=== PATIENT | female | born 1990 | race African-American/Black ===

== ENCOUNTER 2016-11-27 14:42 | Emergency (ER) | payer MEDICAID ==
[~2016-11-27] VITALS: Ht 167.6 cm; Wt 57.0 kg
[2016-11-27] MEDS ORDERED: KETOROLAC 60MG/2ML VIAL IM ONE (18:30)
[2016-11-27 19:10] VITALS: BP 105/76
== END 2016-11-27 19:22 | disposition home or self-care (01) ==
LOC: ER 15:49
DX: L08.9 Local infection of the skin and subcutaneous tissue, unspecified (principal); M32.9 Systemic lupus erythematosus, unspecified; F17.210 Nicotine dependence, cigarettes, uncomplicated; F12.90 Cannabis use, unspecified, uncomplicated
CPT/HCPCS: 96372; 99283; J1885; X7700; Z7610

== ENCOUNTER 2016-11-30 16:57 | Emergency (ER) | payer SELFPAY ==
[~2016-11-30] VITALS: Ht 167.6 cm; Wt 57.0 kg
[2016-11-30] MEDS ORDERED: BACITRACIN ZINC OINT UDPKT TOP ONE (18:30)
[2016-11-30] MEDS ORDERED: KETOROLAC 60MG/2ML VIAL IM ONE (18:30)
[2016-11-30] MEDS ORDERED: TETANUS, DIPHTHERIA, PERTUSSIS VAC/PF 0.5ML (>7YR OLD) IM ONE (18:30)
[2016-11-30] MEDS ORDERED: LIDOCAINE HCL 1% 20ML VIAL (Pyxis) INJ MC ONE (18:30)
[2016-11-30] MEDS ORDERED: TRAMADOL 50MG TABLET PO ONE (20:00)
[2016-11-30 20:12] VITALS: BP 114/81
== END 2016-11-30 20:22 | disposition home or self-care (01) ==
LOC: ER 17:52
DX: L02.31 Cutaneous abscess of buttock (principal); F17.200 Nicotine dependence, unspecified, uncomplicated; M32.9 Systemic lupus erythematosus, unspecified; F12.10 Cannabis abuse, uncomplicated
CPT/HCPCS: 10060; 81025; 90471; 90715; 96372; 99284; J1885; J3490; Z7610

== ENCOUNTER 2017-11-12 00:26 | Emergency (ER) | payer MEDICAID ==
[~2017-11-12] VITALS: Ht 167.6 cm; Wt 58.0 kg
[2017-11-12] MEDS ORDERED: HYDROCODONE/ACETAMINOPHEN 10/325MG TABLET PO ONE (02:45)
[2017-11-12 05:41] VITALS: BP 137/82
== END 2017-11-12 06:06 | disposition home or self-care (01) ==
LOC: ER 00:26
DX: S93.402A Sprain of unspecified ligament of left ankle, initial encounter (principal); M32.9 Systemic lupus erythematosus, unspecified; F17.200 Nicotine dependence, unspecified, uncomplicated; F12.10 Cannabis abuse, uncomplicated; W10.8XXA Fall (on) (from) other stairs and steps, initial encounter; Y93.89 Activity, other specified; Y92.018 Other place in single-family (private) house as the place of occurrence of the external cause
CPT/HCPCS: 73610; 73630; 99284

== ENCOUNTER 2018-08-11 20:02 | Emergency (ER) | payer MEDICAID ==
[~2018-08-11] VITALS: Ht 167.6 cm; Wt 65.0 kg
[2018-08-11] MEDS ORDERED: LIDOCAINE HCL 1% 20ML VIAL (Pyxis) INJ INFIL ONE (23:45)
[2018-08-11] MEDS ORDERED: BACITRACIN ZINC OINT UDPKT TOP ONE (23:45)
[2018-08-11] MEDS ORDERED: IBUPROFEN 600MG TABLET PO ONE (23:45)
[2018-08-12 00:23] VITALS: BP 126/74
== END 2018-08-12 00:23 | disposition home or self-care (01) ==
LOC: ER 20:02
DX: L02.31 Cutaneous abscess of buttock (principal); F12.10 Cannabis abuse, uncomplicated
CPT/HCPCS: 10060; 81025; 87070; 87205; 99283; J3490; Z7610

== ENCOUNTER 2018-10-27 12:57 | Emergency (ER) | payer MEDICAID ==
[~2018-10-27] VITALS: Ht 167.6 cm; Wt 64.0 kg
[2018-10-27] MEDS ORDERED: BACITRACIN ZINC OINT UDPKT TOP ONE (15:00)
[2018-10-27] MEDS ORDERED: LIDOCAINE HCL/EPINEPHRINE 1%-EPI 1:100,000 30 ML VIAL INFIL ONE (15:00)
[2018-10-27] MEDS ORDERED: LIDOCAINE HCL/EPINEPHRINE 1%-EPI 1:100,000 20 ML VIAL INFIL NR (15:15)
[2018-10-27 15:43] VITALS: BP 121/74
== END 2018-10-27 15:43 | disposition home or self-care (01) ==
LOC: ER 12:57
DX: L05.01 Pilonidal cyst with abscess (principal)
CPT/HCPCS: 10060; 99283; Z7610

== ENCOUNTER 2019-04-25 21:37 | Emergency (ER) | payer SELFPAY ==
[~2019-04-25] VITALS: Ht 170.2 cm; Wt 59.0 kg
[2019-04-26] MEDS ORDERED: LIDOCAINE HCL/EPINEPHRINE 1%-EPI 1:100,000 30 ML VIAL INFIL ONE (00:45)
[2019-04-26] MEDS ORDERED: IBUPROFEN 600MG TABLET PO ONE (00:45)
[2019-04-26] MEDS ORDERED: LIDOCAINE HCL/EPINEPHRINE 1%-EPI 1:100,000 20 ML VIAL INFIL SCH (01:00)
[2019-04-26 03:37] VITALS: BP 115/82
== END 2019-04-26 03:39 | disposition home or self-care (01) ==
LOC: ER 21:37
DX: L02.31 Cutaneous abscess of buttock (principal); F17.290 Nicotine dependence, other tobacco product, uncomplicated
CPT/HCPCS: 10060; 87070; 87205; 99283; J3490; Z7610

== ENCOUNTER 2020-11-27 03:39 | Emergency (ER) | payer MEDICAID ==
[~2020-11-27] VITALS: Ht 167.6 cm; Wt 59.0 kg
[2020-11-27] MEDS ORDERED: SULF1TAB48 MT (04:04)
[2020-11-27] MEDS ORDERED: DIPH25CA83 MT (04:04)
[2020-11-27] MEDS ORDERED: ACET-2708 MT (04:06)
[2020-11-27 04:10] VITALS: BP 129/82
== END 2020-11-27 04:15 | disposition home or self-care (01) ==
LOC: ER 03:39
DX: L02.31 Cutaneous abscess of buttock (principal); Z76.0 Encounter for issue of repeat prescription
CPT/HCPCS: 99283

== ENCOUNTER 2021-05-04 01:23 | Emergency (ER) | payer MEDICAID ==
[~2021-05-04] VITALS: Ht 167.6 cm; Wt 62.0 kg
[~2021-05-04 01:23] MED LIST: ACET-2708 MT; DIPH25CA83 MT; SULF1TAB48 MT
[2021-05-04 01:34] VITALS: BP 110/86
[2021-05-04] MEDS ORDERED: ONDANSETRON 4MG ODT PO ONE (02:30)
[2021-05-04] MEDS ORDERED: ONDA4TAB5 PO (07:24)
== END 2021-05-04 03:55 | disposition left against medical advice (07) ==
LOC: ER 01:23
DX: R11.10 Vomiting, unspecified (principal); Z53.21 Procedure and treatment not carried out due to patient leaving prior to being seen by health care provider

== ENCOUNTER 2021-05-04 04:39 | Emergency (ER) | payer MEDICAID ==
[~2021-05-04] VITALS: Ht 167.6 cm; Wt 62.0 kg
[2021-05-04] MEDS ORDERED: MAGNESIUM/ALUMINUM HYDROXIDE/SIMETHICONE 30ML UDC PO STA (04:58)
[2021-05-04] MEDS ORDERED: ONDANSETRON HCL 4MG/2ML INJ IV STA (04:58)
[2021-05-04] MEDS ORDERED: SODIUM CHLORIDE 0.9% 1,000 ML IV ONE (05:00)
[2021-05-04] MEDS ORDERED: KETOROLAC 30MG/ML VIAL IV ONE (05:30)
[2021-05-04 05:54] LABS: CHLORIDE 106 mEq/L (98-107); HEMATOCRIT. 38.4 % (36.0-48.0); HEMOGLOBIN. 12.5 g/dL (12.0-16.0); MEAN CORPUSCULAR HEMOGLOBIN 30.1 pg (28.0-32.0); MEAN CORPUSCULAR VOLUME 92.7 fL (81.0-99.0); MEAN PLATELET VOLUME 7.6 fl (7.4-10.4); PLATELET 313 x1000/uL (130-400); RED BLOOD CELL COUNT 4.15 mill/uL (4.2-5.4); RED CELL DISTRIBUTION WIDTH 13.6 % (11.6-14.6)
[2021-05-04 06:03] VITALS: BP 113/76
[2021-05-04] MEDS ORDERED: ONDA4TAB5 PO (07:24)
[2021-05-04 08:06] LABS: PLATELET ESTIMATE NORMAL
== END 2021-05-04 08:38 | disposition home or self-care (01) ==
LOC: ER 04:39
DX: A05.9 Bacterial foodborne intoxication, unspecified (principal)
CPT/HCPCS: 36415; 80053; 83690; 85025; 96361; 96374; 96375; 99284; J1885; J2405; J7030

== ENCOUNTER 2022-03-14 22:51 | Emergency (ER) | payer MEDICAID ==
[~2022-03-14] VITALS: Ht 167.6 cm; Wt 62.0 kg
[~2022-03-14 22:51] MED LIST changes: +ONDA4TAB5 PO
[2022-03-14 23:01] VITALS: BP 118/89
[2022-03-15] MEDS ORDERED: CARB-173 EACH EAR (03:47)
[2022-03-15] MEDS ORDERED: OFLO5DRO4 RIGHT EAR (03:47)
== END 2022-03-15 05:14 | disposition home or self-care (01) ==
LOC: ER 22:51
DX: H60.91 Unspecified otitis externa, right ear (principal); H61.22 Impacted cerumen, left ear; D64.9 Anemia, unspecified
CPT/HCPCS: 99281; 99283

== ENCOUNTER 2023-03-28 21:29 | Emergency (ER) | payer SELFPAY ==
[~2023-03-28] VITALS: Ht 167.6 cm; Wt 59.2 kg
[~2023-03-28 21:29] MED LIST changes: +CARB-173 EACH EAR; +OFLO5DRO4 RIGHT EAR
[2023-03-28 22:26] VITALS: O2SAT 100
[2023-03-29] MEDS ORDERED: KETOROLAC 30MG/ML VIAL IM ONE (01:00)
[2023-03-29] MEDS ORDERED: LIDOCAINE HCL/PF 1% 10 MG/ML 5ML VIAL INFIL ONE (01:00)
[2023-03-29] MEDS ORDERED: BACITRACIN ZINC OINT UDPKT TOP ONE (01:00)
[2023-03-29] MEDS ORDERED: CEPH500T MT (01:43)
[2023-03-29] MEDS ORDERED: SULF1TAB48 MT (01:43)
[2023-03-29] MEDS ORDERED: HYDR28GE TP (01:43)
[2023-03-29 02:10] VITALS: BP 116/74; PULSE 68; RESP 18; TEMP 98.8
== END 2023-03-29 02:39 | disposition home or self-care (01) ==
LOC: ER 21:29
DX: L02.415 Cutaneous abscess of right lower limb (principal); M19.90 Unspecified osteoarthritis, unspecified site
CPT/HCPCS: 99283; 81025; 10060; 96372; J1885; J3490; Z7610 ×2